=== PATIENT | male | born 1965 | race Caucasian/White ===

== ENCOUNTER 2020-04-03 14:22 | Emergency (ER) | payer BC, SELFPAY ==
[2020-04-03] VITALS (10 sets, daily range): BP systolic 138–155; BP diastolic 91–108; PULSE 74–90; RESP 11–22; TEMP 36.8–37; O2SAT 94–98
--- NOTE | ~2020-04-03 | XR_ITS ---
EXAMINATION: XR chest 2V EXAM DATE: 04/03/2020 15:54 INDICATION: dyspnea, CP, Tightness, Sob, Smoker, Covid + 3 Weeks Ago. TECHNIQUE: Frontal and lateral projections of the chest obtained and reviewed. Comparison is made to prior examination from 04/11/2017. FINDINGS: The lungs are clear. There are no pleural effusions. The cardiomediastinal silhouette is within normal limits. There is no pneumothorax suspected. The bones and soft tissues are unremarkab le. IMPRESSION: No acute cardiopulmonary findings. Reviewed, dictated and finalized at location A. NOSTIC IMAGING MANAGER
--- NOTE | 2020-04-03 16:47 | ECG_ITS ---
Measurements Intervals [place] Rate: 74 P: 38 FL: 162 QRS: 11 QRSD: 96 T: 80 QT: 366 QTc: 408 Interpretive Statements SINUS RHYTHM DELAYED PRECORDIAL R/S TRANSITION INFERIOR INFARCT, AGE INDETERMINATE BORDERLINE ST-T WAVE ABNORMALITY- LAT/HIGH LAT LEADS ABNORMAL ECG Electronically Signed On 04-03-2020 18:51:48 [employer] by Imitaz Jacques D.O.
--- NOTE | 2020-04-03 17:16 | ED.SOB ---
HPI - SOB/Dyspnea General Chief Complaint: Shortness of Breath/Dyspnea Stated Complaint: sob, hx covid 2 weeks ago Time Seen by Provider: 04/03/20 16:45 Source: patient Mode of arrival: ambulatory Limitations: no limitations History of Present Illness HPI Narrative: This is a 54-year-old male that presents to the emergency department for shortness of breath. Reports he was diagnosed with Covid 2 weeks ago. Reports he was just released to go back to work yesterday. Reports he had a long walk into the office, and on his walk he felt very short of breath. Reports it took him a while to recover from this. Reports even just walking back to his ED room made him short of breath as well. Denies fever, cough, chest pain, or lower extremity edema. Related Data Home Medications Medication Instructions Recorded Confirmed aspirin 81 mg tablet,delayed 81 mg PO DAILY 06/06/19 release atorvastatin 40 mg tablet 40 mg PO DAILY 06/06/19 lisinopril 5 mg tablet 5 mg PO DAILY 06/06/19 metoprolol succinate 25 mg 25 mg PO BID 06/06/19 tablet,extended release 24 hr nitroglycerin 0.3 mg sublingual 0.3 mg SUBLINGUAL Q5M PRN 06/06/19 tablet Allergies Allergy/AdvReac Type Severity Reaction Status Date / Time inositol Allergy Unknown Unknown Verified 04/03/20 17:18 niacin Allergy Unknown Unknown Verified 04/03/20 17:18 niacinamide Allergy Unknown Unknown Verified 04/03/20 17:18 Review of Systems Review of Systems: Narrative: CONSTITUTIONAL: Denies fever ENT: Denies rhinorrhea, congestion, sore throat CARDIOVASCULAR: Denies chest pain, or edema. RESPIRATORY: Reports dyspnea. Denies cough All systems reviewed & are unremarkable except as noted in HPI and below [facility] Past Medical History Medical History (Updated 04/03/20 @ 19:33 by Abril Johnston PA-C) Aortic valve sclerosis Essential (primary) hypertension History of coronary artery disease Mixed hyperlipidemia Ventricular hypertrophy Family History Family History Father Hypertension Family history of dementia Diabetes mellitus Family history of Alzheimer's disease Mother Family history of lung cancer Social History Social History (Updated 04/03/20 @ 17:18 by Abril Johnston PA-C) Smoking status: Current some day smoker Second hand tobacco smoke exposure: No Smoking end date: 05/18/16 Alcohol intake: current Exam Narrative: Exam Narrative: GENERAL: Well-appearing, well-nourished, and in no acute distress. HEAD: Normocephalic, atraumatic. EYES: EOMI. ENT: Nares clear, no rhinorrhea or epistaxis. Mucous membranes moist. Oropharynx without tonsillar hypertrophy exudate or other lesions. Bilateral TMs pearly espino non-bulging NECK: Supple. No adenopathy or masses. No carotid bruits or JVD CHEST: Clear to auscultation. No respiratory distress. No wheezes rales or rhonchi HEART: Regular rate and rhythm. No murmur heard. Normal peripheral pulses. EXTREMITIES: Normal range of motion. No edema. SKIN: Warm, dry, no rash. NEURO: No focal deficits. Alert and oriented x3. PSYCH: Normal mood and affect Course Vital Signs Vital signs: Vital Signs Temperature 98.6 F 04/03/20 14:29 Pulse Rate 90 04/03/20 14:29 Respiratory Rate 18 04/03/20 14:29 Blood Pressure 148/108 H 04/03/20 14:29 Pulse Oximetry 98 04/03/20 14:29 Temperature 98.6 F 04/03/20 14:29 Pulse Rate 75 04/03/20 18:46 Respiratory Rate 16 04/03/20 18:46 Blood Pressure 149/101 H 04/03/20 18:46 Pulse Oximetry 94 04/03/20 18:46 MDM - SOB/Dyspnea MDM Narrative Medical decision making narrative: Patient presents to the ER for shortness of breath. Recently had been released back to work. He is afebrile and nontoxic appearing. Oxygen saturation has remained normal on room air. CBC with mild leukocytosis to 11.8. Metabolic panel without concerning findings. D-dimer is not elevated. BNP mildly elevated t
[2020-04-03 17:31] LABS: Basophils Absolute Auto 0.1 K/mm3 (0.0-0.1); Basophils Percent Auto 0.5 % (0.2-1.2); Eosinophils Absolute Auto 0.2 K/mm3 (0-0.3); Hematocrit 45.2 % (42.0-52.0); Hemoglobin 16.1 g/dL (14.0-18.0); Immature Granulocyte Absolute 0.03 K/mm3 (0.00-0.031); Immature Granulocyte Percent A 0.3 % (0-0.5); Lymphocytes Absolute Auto 2.85 K/mm3 (0.9-3.2); Lymphocytes Percent Auto 24.2 % (18.3-44.2); Mean Corpuscular HGB Conc 35.6 g/dl (32-36); Mean Corpuscular Hemoglobin 30.6 pg (26-34); Mean Corpuscular Volume 85.8 fl (80-100); Monocytes Absolute Auto 0.8 K/mm3 (0.1-0.6); Monocytes Percent Auto 6.8 % (2.6-8.5); Neutrophils Absolute Auto 7.8 K/mm3 (1.3-6.7); Neutrophils Percent Auto 66.2 % (45.5-73.1); Platelet Count Result 264 k/mm3 (150-375); Red Blood Count 5.27 M/mm3 (4.6-6.20); Red Cell Distribution Width 12.4 % (11.5-14.5); White Blood Count 11.8 K/mm3 (4.5-10.0)
[2020-04-03 17:43] LABS: Anion Gap 10 mmol/L (8-16); Blood Urea Nitrogen 17 mg/dL (9-20); Calcium 9.6 mg/dL (8.4-10.2); Carbon Dioxide 27 mmol/L (22-30); Chloride 104 mmol/L (98-107); Estimated CRCL calculation 115 ml/min; Estimated Glomerular Filt Rate > 60; Glucose 95 mg/dL (75-110); Potassium 4.5 mmol/L (3.4-5.0); Sodium 141 mmol/L (137-145)
[2020-04-03 17:52] LABS: NT Pro B Type Natriuretic Pept 522 PG/ML (5-100)
[2020-04-03 18:17] LABS: Prothrombin Time 14.1 Seconds (11.1-14.7)
[2020-04-03 18:18] LABS: Partial Thromboplastin Time 27.1 SECONDS (22.3-36.8)
[2020-04-03 18:27] LABS: D Dimer 0.27 ug/mL (<0.48)
== END 2020-04-03 19:47 | disposition home or self-care (01) ==
PROVIDERS: Physician Assistant; Emergency Provider Emergency Medicine; PCP Family Medicine
DX: R06.00 Dyspnea, unspecified (principal); Z86.19 Personal history of other infectious and parasitic diseases; I35.8 Other nonrheumatic aortic valve disorders; I10 Essential (primary) hypertension; E78.2 Mixed hyperlipidemia; I25.10 Atherosclerotic heart disease of native coronary artery without angina pectoris; I51.7 Cardiomegaly; F17.200 Nicotine dependence, unspecified, uncomplicated; Z79.82 Long term (current) use of aspirin; R94.31 Abnormal electrocardiogram [ECG] [EKG]
CPT/HCPCS: 36415; 71046; 80048; 83880; 85025; 85380; 85610; 85730; 93005; 99284

== ENCOUNTER → 2021-08-16 15:36 | Outpatient (CLI) | payer BC, SELFPAY ==
--- NOTE | ~2021-08-16 | CT_ITS ---
EXAMINATION:CT lung screening DATE: 08/16/2021 15:53 INDICATION: Encounter for screening for malignant neoplasms of respiratory organs. Current smoker wit h 30 pack year history. TECHNIQUE: Computed tomography (CT) of the chest was performed without intravenous contrast. Automate d exposure control and iterative reconstruction technique were employed. The dose-length product (DLP ) was 205.33 mGy-cm. COMPARISON: None. FINDINGS: There is mild scarring at the lung apices. There is mild atelectasis bilaterally. There is a 3 mm nodule in left lower lobe. There is a 5 mm nodule at minor fissure. There is a 4 mm nodule in right lower lobe. There is a 5 mm nodule in left lower lobe. No pleural effusion. The heart size is n ormal. There are coronary artery calcifications. There are calcifications of aortic valve. There is e ctasia of ascending aorta measuring 4.9 cm. There are bridging endplate osteophytes at multiple level s in the spine, consistent with diffuse idiopathic skeletal hyperostosis (DISH). IMPRESSION: 1. Lung-RADS category 2: Benign appearance or behavior. Continue annual screening with noncontrast lo w-dose chest CT in 12 months. 2. Ectasia of ascending aorta measuring 4.9 cm. Reviewed, dictated and finalized at location A. IMPRESSION: 1. Lung-RADS category 2: Benign appearance or behavior. Continue annual screeni ng with noncontrast low-dose chest CT in 12 months. 2. Ectasia of ascending aorta measuring 4.9 cm.
== END ==
PROVIDERS: PCP Family Medicine; Visit Provider Family Medicine
DX: Z12.2 Encounter for screening for malignant neoplasm of respiratory organs (principal); I77.811 Abdominal aortic ectasia
CPT/HCPCS: 71271

== ENCOUNTER 2021-09-06 01:12 | Day surgery (SDC) | payer BC, SELFPAY ==
[2021-08-28 09:44] VITALS: BMI 33.2
--- NOTE | 2021-09-06 07:25 | PM.HPGS ---
History of Present Illness History of Present Illness Consent: Risks, benefits, and alternatives have been discussed and questions answered. Patient agrees to proceed with procedure. Chief complaint: neoplasm screening Narrative: Frank Saenz is a 55 year old male Was referred for colon cancer screening. Review of Systems Review of Systems: All systems reviewed & are unremarkable except as noted in HPI and below PMF[facility] Past Medical History Medical History Aortic valve sclerosis Depression Essential (primary) hypertension Mixed hyperlipidemia Obesity Old NM (myocardial infarction) Ventricular hypertrophy Surgical History Surgical History History of coronary artery stent placement Family History Family History Father Hypertension Family history of dementia Diabetes mellitus Family history of Alzheimer's disease Mother Family history of lung cancer Social History Social History Smoking packs per day: 0.5 Smoking cigarettes per day: 10.0 Smoking status: Current every day smoker Tobacco type: cigarettes Second hand tobacco smoke exposure: No Alcohol intake: current Drinks per week: 3 Substance use: never Substance use type: does not use Living arrangements: alone Gender identity (if verbalized by the patient): Male Sexual Orientation (if Verbalized by the Patient): Straight or Heterosexual Spiritual care concerns: No Meds Home Medications and Allergies Home Medications Medication Instructions Recorded Confirmed Type aspirin 81 mg tablet,delayed 81 mg PO DAILY 06/06/19 09/06/21 History release lisinopril 5 mg tablet 5 mg PO DAILY 06/06/19 08/28/21 History metoprolol succinate 25 mg 25 mg PO BID 06/06/19 08/28/21 History tablet,extended release 24 hr nitroglycerin 0.3 mg sublingual 0.3 mg SUBLINGUAL Q5M PRN 06/06/19 08/28/21 History tablet cetirizine 10 mg tablet 10 mg PO DAILY PRN 08/12/21 09/06/21 History garlic 1,000 mg capsule 1,000 mg PO DAILY 08/12/21 08/28/21 History grfkgldbklcy-gaslbpzp-hplgvp tablet 1 tablet PO DAILY 08/12/21 08/28/21 History omega-3 fatty acids-fish oil 360 1 cap PO DAILY 08/12/21 08/28/21 History mg-1,200 mg capsule Cbd Gummy 25 mg PO QID PRN 08/28/21 08/28/21 History ibuprofen 600 mg PO QID PRN 08/28/21 08/28/21 History sertraline 50 mg PO DAILY 08/28/21 08/28/21 History atorvastatin 40 mg tablet 40 mg PO DAILY #90 tablet 09/02/21 09/06/21 Rx Allergies Allergy/AdvReac Type Severity Reaction Status Date / Time inositol Allergy Unknown Unknown Verified 09/06/21 10:14 niacin Allergy Unknown Unknown Verified 09/06/21 10:14 niacinamide Allergy Unknown Unknown Verified 09/06/21 10:14 Exam Resp: Auscultation: clear to auscultation bilaterally Cardio: Rate: regular rate Rhythm: regular rhythm GI: GI Palp: Yes Soft to palpation and No Tenderness to palpation present (GI) Assessment and Plan Assessment and plan (1) Colon cancer screening: Code(s): Z12.11 - Encounter for screening for malignant neoplasm of colon Status: Acute Assessment and Plan: Colonoscopy with possible biopsy or polypectomy or cautery or injection of substances.
[2021-09-06 10:15] VITALS: BP 123/89; PULSE 76; RESP 20; TEMP 36.5; O2SAT 97; BMI 32.8
[2021-09-06] MEDS: LACTATED RINGERS 1,000 ML 150 ML IV CONT (10:19)
--- NOTE | 2021-09-06 11:26 | WPDANESEPPF ---
Anes - Initial Pre Proc Eval Procedure: Operation Date: 09/06/21 11:30 Proposed Procedures p Screening Colonoscopy - Alvin Bacon MD Date/Time: 09/06/21 11:26 Surgeon: Alvin Bacon MD Pre Op Diagnosis: neoplasm screening Patient Data Age: 55 Gender: M Height: 1.78 m Weight: 103.6 kg Last Vital Signs Temp 97.7 F 09/06/21 10:15 Pulse 76 09/06/21 10:15 Resp 20 09/06/21 10:15 BP 123/89 09/06/21 10:15 Pulse Ox 97 09/06/21 10:15 Allergies Allergy/AdvReac Type Severity Reaction Status Date / Time inositol Allergy Unknown Unknown Verified 09/06/21 10:14 niacin Allergy Unknown Unknown Verified 09/06/21 10:14 niacinamide Allergy Unknown Unknown Verified 09/06/21 10:14 Home Medications Medication Instructions Recorded Confirmed Type aspirin 81 mg tablet,delayed 81 mg PO DAILY 06/06/19 09/06/21 History release lisinopril 5 mg tablet 5 mg PO DAILY 06/06/19 08/28/21 History metoprolol succinate 25 mg 25 mg PO BID 06/06/19 08/28/21 History tablet,extended release 24 hr nitroglycerin 0.3 mg sublingual 0.3 mg SUBLINGUAL Q5M PRN 06/06/19 08/28/21 History tablet cetirizine 10 mg tablet 10 mg PO DAILY PRN 08/12/21 09/06/21 History garlic 1,000 mg capsule 1,000 mg PO DAILY 08/12/21 08/28/21 History mqtkxgggjsmd-zlwhqnmu-inskue tablet 1 tablet PO DAILY 08/12/21 08/28/21 History omega-3 fatty acids-fish oil 360 1 cap PO DAILY 08/12/21 08/28/21 History mg-1,200 mg capsule Cbd Gummy 25 mg PO QID PRN 08/28/21 08/28/21 History ibuprofen 600 mg PO QID PRN 08/28/21 08/28/21 History sertraline 50 mg PO DAILY 08/28/21 08/28/21 History atorvastatin 40 mg tablet 40 mg PO DAILY #90 tablet 09/02/21 09/06/21 Rx Patient hx anesthesia problems: none Family hx anesthesia problems: none Results Review: All pre-operative results and documents have been reviewed as part of the pre-operative evaluation. [facility] Past Medical History Medical History Aortic valve sclerosis Depression Essential (primary) hypertension Mixed hyperlipidemia Obesity Old [place] (myocardial infarction) Ventricular hypertrophy Surgical History Surgical History History of coronary artery stent placement Family History Family History Father Hypertension Family history of dementia Diabetes mellitus Family history of Alzheimer's disease Mother Family history of lung cancer Social History Social History Smoking packs per day: 0.5 Smoking cigarettes per day: 10.0 Smoking status: Current every day smoker Tobacco type: cigarettes Second hand tobacco smoke exposure: No Alcohol intake: current Drinks per week: 3 Substance use: never Substance use type: does not use Living arrangements: alone Gender identity (if verbalized by the patient): Male Sexual Orientation (if Verbalized by the Patient): Straight or Heterosexual Spiritual care concerns: No Anes - Eval Final PreProcedure Day of Procedure 09/06/21 11:26 Patient weight: obese Heart: regular rate and rhythm Lungs: clear to auscultation Airway: Mallampati scale class II Neurological: alert and oriented Last oral intake: >/= 8 hours ASA classification: III Emergent: no Anesthetic plan: proceed Anesthesia type and monitoring: general GIVS and standard monitoring Results Review: All pre-operative results and documents have been reviewed as part of the pre-operative evaluation. Informed Consent: The patient's anesthetic plan and its attendant risks and benefits were discussed with the patient/family/POA. Questions were solicited and answers provided to the satisfaction of the patient/family/POA.
[2021-09-06 11:43] VITALS: BP 99/60; PULSE 69; RESP 22; O2SAT 96
[2021-09-06 11:53] VITALS: BP 103/62; PULSE 68; RESP 22; O2SAT 97
[2021-09-06 12:03] VITALS: BP 103/60; PULSE 65; RESP 19; O2SAT 97
== END 2021-09-06 12:04 | disposition home or self-care (01) ==
PROVIDERS: PCP Family Medicine; Visit Provider Internal Medicine Gastroenterology
PROC: 0DJD8ZZ Inspection of Lower Intestinal Tract, Via Natural or Artificial Opening Endoscopic (ICD-10-PCS; CPT 45378; principal; 2021-09-06 11:30)
DX: Z12.11 Encounter for screening for malignant neoplasm of colon (principal); D12.0 Benign neoplasm of cecum; D12.5 Benign neoplasm of sigmoid colon; K63.5 Polyp of colon; I11.9 Hypertensive heart disease without heart failure; Z79.82 Long term (current) use of aspirin; I25.2 Old myocardial infarction; E78.2 Mixed hyperlipidemia; I35.8 Other nonrheumatic aortic valve disorders; Z95.5 Presence of coronary angioplasty implant and graft; F32.9 Major depressive disorder, single episode, unspecified; F17.210 Nicotine dependence, cigarettes, uncomplicated; E66.9 Obesity, unspecified; Z68.32 Body mass index [BMI] 32.0-32.9, adult
CPT/HCPCS: 45380; 45385; 45381; 88305; J2704; J7120

== ENCOUNTER 2022-02-25 13:30 | Outpatient (CLI) | payer BC, SELFPAY ==
--- NOTE | ~2022-02-25 | US_ITS ---
EXAMINATION: US carotid duplex BI DATE: 02/25/2022 14:15 INDICATION: Vertigo. Dizziness and giddiness. TECHNIQUE: Grayscale, color Doppler, and pulsed Doppler images of the cervical carotid arteries were obtained. The degree of vessel stenosis is placed in one of the following categories: normal, <50%, 5 0-69%, >=70% but less than near-occlusion, near-occlusion, or total occlusion. Note that percent sten osis relative to normal distal artery lumen diameter is indirectly measured from velocity measurement s as described by Bartolo, et al. Radiology 2003; 229:340-346. COMPARISON: None. FINDINGS: RIGHT: The right common carotid artery (CCA) peak systolic velocity (PSV) is 133 cm/s. The right internal ca rotid artery (ICA) PSV is 125 cm/s. The right ICA end-diastolic velocity (EDV) is 40 cm/s. The right ICA/CCA PSV ratio is 0.9. Grayscale and color Doppler images yield an estimate of <50% diameter reduc tion from plaque in the ICA. The external carotid artery (ECA) PSV is 145 cm/s. There is antegrade fl ow in the right vertebral artery. LEFT: The left CCA PSV is 186 cm/s. The left ICA PSV is 112 cm/s. The left ICA EDV is 29 cm/s. The left ICA /CCA PSV ratio is 0.9. Grayscale and color Doppler images yield an estimate of <50% diameter reductio n from plaque in the ICA. The ECA PSV is 155 cm/s. There is antegrade flow in the left vertebral elba ry. IMPRESSION: 1. <50% stenosis in the right internal carotid artery. 2. <50% stenosis in the left internal carotid artery. Reviewed, dictated and finalized at location B.
== END 2022-02-25 13:31 | disposition home or self-care (01) ==
PROVIDERS: PCP Family Medicine; Visit Provider Family Medicine
DX: I65.23 Occlusion and stenosis of bilateral carotid arteries (principal); R42 Dizziness and giddiness
CPT/HCPCS: 93880

== ENCOUNTER → 2022-10-29 07:27 | Outpatient (CLI) | payer BC, SELFPAY ==
--- NOTE | ~2022-10-29 | CT_ITS ---
CT Scan of the Chest without Contrast: Clinical Indication: Lung cancer screening, personal history of nicotine dependence Technique: Contiguous sections were acquired throughout the chest without intravenous contrast. Dose reduction technique was used on this scan by utilizing automated exposure control and iterative recon struction technique. The dose-length product (DLP) was 171.23 mGy-cm. COMPARISON: 08/16/2021 Findings: There is no evidence of any significant mediastinal, hilar or axillary lymphadenopathy. Coronary elba ry calcifications are present. Ascending aortic aneurysm measures 5.2 cm in diameter. There is no evidence of pleural or pericardial effusion. Stable nodule along the right minor fissure (axial image 73). Calcified right lower lobe granuloma no jacques. Stable subcentimeter nodules in the left lower lobe. Images through the upper abdomen reveal no abnormalities. There is DISH of the thoracic spine. Impression: Lung RADS 2: Benign appearance. 12 month follow-up screening CT advised. Ascending thoracic aortic aneurysm measures 5.2 cm in maximum diameter. Reviewed, dictated and finalized at location . Impression: Lung RADS 2: Benign appearance. 12 month follow-up screening CT advised. Ascending thoracic aortic aneurysm measures 5.2 cm in maximum diameter.
== END ==
PROVIDERS: PCP Family Medicine; Visit Provider Family Medicine
DX: Z12.2 Encounter for screening for malignant neoplasm of respiratory organs (principal); Z87.891 Personal history of nicotine dependence
CPT/HCPCS: 71271

== ENCOUNTER 2024-09-26 00:20 | Day surgery (SDC) | payer OTHER, SELFPAY ==
[2024-09-21 08:17] VITALS: BMI 30.7
--- OUTSIDE RECORDS SUMMARY | 2024-09-26 00:23 | XMS_ITS | Referral Summary ---
Author Organization [facility] Address [address] [address] Care Team Providers Care Compound Worker Name Role Phone Leon Arita MD Primary Care Provider Encounters Date Type Department Care Team Description 07/21/2024 3:45 PM WELL FLOW OPERATOR Office Visit [facility] Cardiology at [address] [place] [address] Roberto Benavides MD Chronic coronary artery disease (Primary Dx); Presence of stent in coronary artery from Last 3 Months Allergies Active Allergy Reactions Criticality Noted Date Comments Niacin Flushing (skin) Low 04/27/2017 Medications nitroglycerin (NITROSTAT) 0.[address] 1 tablet (0.4 mg total) under the tongue every 5 (five) minutes as needed for chest pain Active aspirin 81 mg tablet Take 1 tablet (81 mg total) by mouth daily Active cetirizine (ZyrTEC) 10 mg tablet Take 1 tablet (10 mg total) by mouth daily Active multivitamin tablet tabletIndicati ons:Vitamin Deficiency Prevention Take 1 tablet by mouth daily Active garlic 1,000 mg capsule Take 1,000 mg by mouth daily. Active CALCIUM CARBONATE (CALCIUM 600 ORAL) Take 600 mg by mouth daily. Active cholecalcifero l (VITAMIN D-3) 1,000 unit capsule Take 1 capsule (1,000 Units total) by mouth daily Active sertraline (ZOLOFT) 100 mg tablet 0.5 tablets (50 mg total) 05/04/201 8 Active omega 1-ojh-rnj-fish oil 300-1,000 mg capsule daily. 7 Active atorvastatin (LIPITOR) 40 mg tablet TAKE 1 TABLET BY MOUTH EVERY DAY 90 tablet 2 1 Active Jardiance 10 mg tablet Take 1 tablet (10 mg total) by mouth every morning 4 Active apple cider vinegar 500 mg tablet Take by mouth Active lisinopriL (PRINIVIL,ZEST RIL) 5 mg tablet TAKE 1 TABLET BY MOUTH EVERY DAY 90 tablet 2 4 Active metoprolol tartrate (LOPRESSOR) 25 mg immediate release tablet TAKE 1 TABLET BY MOUTH TWICE A DAY 180 tablet 3 5 Active metoprolol tartrate (LOPRESSOR) 25 mg immediate release tablet TAKE 1 TABLET BY MOUTH TWICE A DAY 180 tablet 1 4 09/03/19 25 Discontinued Active Problems Problem Noted Date Diagnosed Date Nonalcoholic steatohepatitis 12/26/2017 Fatty infiltration of liver 04/27/2017 Coronary artery disease invo lving [place] coronary artery of [place] heart without angina pectoris 04/27/2017 Presence of stent in coronary artery 04/27/2017 Dyslipidemia 04/27/2017 History of non-ST elevation myocardial infarctio n (NSTEMI) 04/27/2017 Tobacco abuse 04/27/2017 Aortic root dilatation 04/27/2017 Psoriasis 12/22/2016 Chronic coronary artery disease 12/22/2016 Obesity 12/22/2016 Abnormal liver function tests 12/22/2016 Resolved Problems Problem Noted Date Diagnosed Date Resolved Date Chronic hepatitis B virus infection 12/22/2016 12/26/2017 Acute coronary syndrome 12/16 Social History Tobacco Use Types Packs/Day Years Used Date Smoking Tobacco: Former Smokeless Tobacco: Never Tobacco Cessation:Counseling Given: Not Answered Alcohol Use Standard Drinks/Week Comments Yes 0 (1 standard drink = 0.6 oz pur e alcohol) Sex and Gender Information Value Date Recorded Sex Assigned at Not on file Legal Sex Male 2:14 AM WELL FLOW OPERATOR Gender Identity Male 04/26/2022 12:53 PM WELL FLOW OPERATOR Sexual Orientation Straight 04/26/2022 12 :53 PM WELL FLOW OPERATOR Last Filed Vital Signs Vital Sign Reading Time Taken Comments Blood Pressure 120/72 07/21/2024 3:43 PM WELL FLOW OPERATOR Pulse 84 07/21/2024 3:43 PM WELL FLOW OPERATOR Temperature 36.3 C (97.3 F) 10/11/2019 11:01 AM CDT Respiratory Rate 12 11/17/2019 8:59 AM CDT Oxygen Saturation 95% 07/21/2024 3:43 PM WELL FLOW OPERATOR Inhaled Oxygen Concentration - - Weight 98.4 kg (217 lb) 07/21/2024 3:43 PM WELL FLOW OPERATOR Height 180.3 cm (5' 11 ) 07/21/2024 3:43 PM WELL FLOW OPERATOR Body Mass Index 30.27 07/21/2024 3:43 PM WELL FLOW OPERATOR Plan of Treatment Not on file [place] [address] Care Teams Compound Worker Relationship Specialty Start Date End Date Leon Arita MD [address] [facility] [address] [place] [address] PCP - General Family Medicine 12/19/21
--- OUTSIDE RECORDS SUMMARY | 2024-09-26 00:23 | XMS_ITS | CONTINUITY OF CARE DOCUMENT ---
Author Name nayely adler Address Unknown Organization [facility] Address [address] [place] [address] Phone [phone] Care Team Providers Care Feather Cutting Machine Feeder Name Role Phone nayely adler Unavailable Unavailable INSURANCE PROVIDERS Payer name Policy type / Coverage type [place] red democrat ID [facility] [employer] insurance company [id number]
--- OUTSIDE RECORDS SUMMARY | 2024-09-26 00:23 | XMS_ITS | Clinical Summary ---
Author Organization [facility] Address [address] [address] Care Team Providers Care Service Establishment Attendant Name Role Phone Leon Arita MD Primary Care Provider Allergies Active Allergy Reactions Criticality Noted Date [...] mg tablet 0.5 tablets (50 mg total) 8 Active omega 3-zmp-dao-fish oil 300-1,000 mg capsule daily. 7 Active [...] liver 04/27/2017 Coronary artery disease invo lving [place] coronary artery of [place] heart without angina pectoris 04/27/2017 Presence of [...] infection 12/22/2016 12/26/2017 Acute coronary syndrome 12/16 Encounters Date Type Department Care Team Description 07/21/2024 3:45 PM PRINTING PRESS MACHINE OPERATOR Office Visit [facility] Cardiology at [address] [place] [address] Roberto Benavides MD Chronic coronary artery disease (Primary Dx); Presence of stent in coronary artery from Last 3 Months Surgical History Surgery Date Site/Laterality Comments CORONARY ANGIOPLASTY WITH STENT PLACEMENT Medical History Medical History Date Comments Chronic coronary artery disease Coronary Artery Disease Hyperlipidemia Acute coronary syndrome (HCC) Social History Tobacco Use Types Packs/Day Years Used Date Smoking Tobacco: Former Smokeless Tobacco: Never Tobacco Cessation:Counseling Given: Not Answered Alcohol Use Standard Drinks/Week Comments Yes 0 (1 standard drink = 0.6 oz pur e alcohol) Sex and Gender Information Value Date Recorded Sex Assigned at Not on file Legal Sex Male 2:14 AM PRINTING PRESS MACHINE OPERATOR Gender Identity Male 04/26/2022 12:53 PM PRINTING PRESS MACHINE OPERATOR Sexual Orientation Straight 04/26/2022 12 :53 PM PRINTING PRESS MACHINE OPERATOR Obstetrics History Last Filed Vital Signs Vital Sign Reading Time Taken Comments Blood Pressure 120/72 07/21/2024 3:43 PM PRINTING PRESS MACHINE OPERATOR Pulse 84 07/21/2024 3:43 PM PRINTING PRESS MACHINE OPERATOR Temperature 36.3 C (97.3 F) 10/11/2019 11:01 AM CDT Respiratory Rate 12 11/17/2019 8:59 AM CDT Oxygen Saturation 95% 07/21/2024 3:43 PM PRINTING PRESS MACHINE OPERATOR Inhaled Oxygen Concentration - - Weight 98.4 kg (217 lb) 07/21/2024 3:43 PM PRINTING PRESS MACHINE OPERATOR Height 180.3 cm (5' 11 ) 07/21/2024 3:43 PM PRINTING PRESS MACHINE OPERATOR Body Mass Index 30.27 07/21/2024 3:43 PM PRINTING PRESS MACHINE OPERATOR Plan of Treatment Health Maintenance Due Date Last Done Comments Colon Cancer Screening-Colonoscopy 1965 Depression Screening 1965 Hepatitis C Screening 1965 Prostate Cancer Screening-PSA 1965 Regular Well Visit/Exam 18-64 11/30/1983 Pneumococcal vaccine <65 (1 of 2 - PCV) 1984 Zoster Vaccine (1 of 2) 11/30/2015 Influenza Vaccine (Season Ended) 2025 DTaP/Tdap/Td Vaccine (2 - Td or Tdap) 02/21/202911/2018 Hepatitis B Screening Completed 12/26/2017, 017 Insurance [facility] CHOICE PLUS [facility] CHOICE PLUS Care Teams Service Establishment Attendant Relationship Specialty Start Date End Date Leon Arita MD [address] [facility] [address] [place], [place] [id number] PCP - General Family Medicine 12/19/21
[2024-09-26 10:11] VITALS: BP 122/87; PULSE 67; RESP 18; TEMP 36.1; O2SAT 98
--- NOTE | 2024-09-26 10:26 | WPDANESEPPF ---
Anes - Initial Pre Proc Eval Procedure: Operation Date: 09/26/24 11:30 Proposed Procedures p Colonoscopy - Mckay Viera MD Date/Time: 09/26/24 10:26 Surgeon: Mckay Viera MD Pre Op Diagnosis: Personal history of colon polyps, unspecified Patient Data Age: 58 Gender: M Height: 1.8 m Weight: 95.6 kg Last Vital Signs Temp 36.1 C L 09/26/24 10:11 Pulse 67 09/26/24 10:11 Resp 18 09/26/24 10:11 BP 122/87 09/26/24 10:11 Pulse Ox 98 09/26/24 10:11 O2 Del Method Room Air 09/26/24 10:11 Allergies Allergy/AdvReac Type Severity Reaction Status Date / Time inositol Allergy Unknown Unknown Verified 09/26/24 10:09 niacin Allergy Unknown Unknown Verified 09/26/24 10:09 niacinamide Allergy Unknown Unknown Verified 09/26/24 10:09 Home Medications ?Medication ?Instructions ?Recorded ?Confirmed ?Type aspirin 81 mg tablet,delayed 81 mg PO DAILY 06/06/19 09/26/24 History release (Adult Aspirin Regimen) lisinopril 5 mg tablet 5 mg PO DAILY 06/06/19 09/26/24 History metoprolol succinate 25 mg 25 mg PO BID 06/06/19 09/26/24 History tablet,extended release 24 hr nitroglycerin 0.3 mg sublingual 0.3 mg sublingual Q5M PRN Chest 06/06/19 09/21/24 History tablet (Nitrostat) Pain cetirizine 10 mg tablet (Zyrtec) 10 mg PO DAILY PRN Allergy Symptoms 08/12/21 09/26/24 History garlic 1,000 mg capsule 1,000 mg PO DAILY 08/12/21 09/26/24 History nbwcznixmgsh-nuebebgc-eohzjh tablet 1 tablet PO DAILY 08/12/21 09/26/24 History omega-3 fatty acids-fish oil 360 1 cap PO DAILY 08/12/21 09/26/24 History mg-1,200 mg capsule (Fish Oil) ibuprofen 600 mg tablet 600 mg PO QID PRN Pain 08/28/21 09/21/24 History blood-glucose meter #1 ea 09/06/21 09/21/24 Rx lancets #200 ea 09/06/21 09/21/24 Rx blood sugar diagnostic (Blood #100 ea 11/10/22 09/21/24 Rx Glucose Test strips) tadalafil 10 mg tablet 10 mg PO DAILY PRN sexual activity 09/10/23 09/21/24 Rx #10 tabs atorvastatin 40 mg tablet 40 mg PO DAILY #90 tabs 06/02/24 09/26/24 Rx empagliflozin 10 mg tablet 10 mg PO QAM #90 tabs 09/02/24 09/26/24 Rx (Jardiance) sertraline 50 mg tablet (Zoloft) 50 mg PO DAILY #90 tabs 09/05/24 09/26/24 Rx Patient hx anesthesia problems: none Family hx anesthesia problems: none Results Review: All pre-operative results and documents have been reviewed as part of the pre-operative evaluation. [facility] Past Medical History Medical History CAD (coronary artery disease) Obesity [place] (myocardial infarction) Depression Aortic valve sclerosis Ventricular hypertrophy Essential (primary) hypertension Mixed hyperlipidemia Surgical History Surgical History History of coronary artery stent placement Family History Family History Father Hypertension Family history of dementia Diabetes mellitus Family history of Alzheimer's disease Mother Family history of lung cancer Social History Social History (Updated 09/26/24 @ 10:26 by Ted Rios MD) Smoking packs per day: 0.5 Smoking cigarettes per day: 10.0 Smoking status: Former smoker Tobacco type: cigarettes Second hand tobacco smoke exposure: No Smoking end date: 04/28/22 Alcohol intake: current Drinks per week: 3 Substance use: never Substance use type: does not use Living arrangements: alone Occupation/Education: occupation Gender identity (if verbalized by the patient): Male Sexual Orientation (if Verbalized by the Patient): Straight or Heterosexual Spiritual care concerns: No Anes - Eval Final PreProcedure Day of Procedure 09/26/24 10:26 Patient weight: overweight Heart: regular rate and rhythm Lungs: clear to auscultation Airway: Mallampati scale class II Neurological: alert and oriented Last oral intake: >/= 8 hours ASA classification: III Emergent: no Anesthetic plan: proceed Anesthesia type and monitoring: general GIVS and standard monitoring Results Review: All pre-operative results and documents have been reviewed as part of the pre-operative evaluation. Informed Consent: The patient's anesthetic plan and its attendant risks and benefits were discussed with the patient/family/POA. Questions were solicited and answers provided to the satisfaction of the patient/family/POA.
[2024-09-26] MEDS: LACTATED RINGERS 1,000 ML 150 ML IV CONT (10:27)
[2024-09-26 10:34] LABS: Glucose Point of Care 113 mg/dl (65-105)
--- NOTE | 2024-09-26 11:18 | PM.IMHP ---
H&P: HPI History of Present Illness Date/Time: 09/26/24 11:18 Chief Complaint: History of colon polyps Narrative: The patient has a history of colonic polyps, the last colonoscopy was in 2021, finding several serrated polyps and tubular adenomas. One of them was larger than 1 cm and was resected with a hot snare. Jennifer ink was marked in the site located in the descending colon. Review of Systems Review of Systems: All systems reviewed & are unremarkable except as noted in HPI and below PMFSH Past Medical History Medical History CAD (coronary artery disease) Obesity [place] (myocardial infarction) Depression Aortic valve sclerosis Ventricular hypertrophy Essential (primary) hypertension Mixed hyperlipidemia Surgical History Surgical History History of coronary artery stent placement Family History Family History Father Hypertension Family history of dementia Diabetes mellitus Family history of Alzheimer's disease Mother Family history of lung cancer Social History Social History (Updated 09/26/24 @ 10:26 by Ted Rios MD) Smoking packs per day: 0.5 Smoking cigarettes per day: 10.0 Smoking status: Former smoker Tobacco type: cigarettes Second hand tobacco smoke exposure: No Smoking end date: 04/28/22 Alcohol intake: current Drinks per week: 3 Substance use: never Substance use type: does not use Living arrangements: alone Occupation/Education: occupation Gender identity (if verbalized by the patient): Male Sexual Orientation (if Verbalized by the Patient): Straight or Heterosexual Spiritual care concerns: No Meds Home Medications and Allergies Home Medications ?Medication ?Instructions ?Recorded ?Confirmed ?Type aspirin 81 mg tablet,delayed 81 mg PO DAILY 06/06/19 09/26/24 History release (Adult Aspirin Regimen) lisinopril 5 mg tablet 5 mg PO DAILY 06/06/19 09/26/24 History metoprolol succinate 25 mg 25 mg PO BID 06/06/19 09/26/24 History tablet,extended release 24 hr nitroglycerin 0.3 mg sublingual 0.3 mg sublingual Q5M PRN Chest 06/06/19 09/21/24 History tablet (Nitrostat) Pain cetirizine 10 mg tablet (Zyrtec) 10 mg PO DAILY PRN Allergy Symptoms 08/12/21 09/26/24 History garlic 1,000 mg capsule 1,000 mg PO DAILY 08/12/21 09/26/24 History snbbmmyhbreq-psuwsujn-bnapzn tablet 1 tablet PO DAILY 08/12/21 09/26/24 History omega-3 fatty acids-fish oil 360 1 cap PO DAILY 08/12/21 09/26/24 History mg-1,200 mg capsule (Fish Oil) ibuprofen 600 mg tablet 600 mg PO QID PRN Pain 08/28/21 09/21/24 History blood-glucose meter #1 ea 09/06/21 09/21/24 Rx lancets #200 ea 09/06/21 09/21/24 Rx blood sugar diagnostic (Blood #100 ea 11/10/22 09/21/24 Rx Glucose Test strips) tadalafil 10 mg tablet 10 mg PO DAILY PRN sexual activity 09/10/23 09/21/24 Rx #10 tabs atorvastatin 40 mg tablet 40 mg PO DAILY #90 tabs 06/02/24 09/26/24 Rx empagliflozin 10 mg tablet 10 mg PO QAM #90 tabs 09/02/24 09/26/24 Rx (Jardiance) sertraline 50 mg tablet (Zoloft) 50 mg PO DAILY #90 tabs 09/05/24 09/26/24 Rx Allergies Allergy/AdvReac Type Severity Reaction Status Date / Time inositol Allergy Unknown Unknown Verified 09/26/24 10:09 niacin Allergy Unknown Unknown Verified 09/26/24 10:09 niacinamide Allergy Unknown Unknown Verified 09/26/24 10:09 Vital Signs Vital Signs - 24 hr 09/26/24 10:11 Temperature 97 F L Pulse Rate 67 Respiratory Rate 18 Blood Pressure 122/87 Pulse Oximetry 98 Oxygen Delivery Room Air Exam Const: General: cooperative and healthy appearing Resp: Effort & Inspection: normal respiratory effort and able to speak in complete sentences Auscultation: clear to auscultation bilaterally Cardio: Rate: regular rate Rhythm: regular rhythm GI: Inspection: normal to inspection GI Palp: No No hepatosplenomegaly present Auscultation: normal bowel sounds Rectal Exam: deferred Skin: General skin exam: normal color Psych: Appearance: grossly normal Mental Status: mental status grossly normal Assessment and Plan Assessment and plan (1) History of colonic polyps: Code(s): Z86.0100 - Personal history of colon polyps, unspecified Status: Acute Assessment and Plan: The patient is deemed a good candidate for the procedure. Consent signed. Will proceed.
[2024-09-26 11:45] VITALS: BP 116/82; PULSE 60; RESP 19; O2SAT 96
[2024-09-26 11:55] VITALS: BP 115/79; PULSE 59; RESP 19; O2SAT 97
[2024-09-26 12:05] VITALS: BP 111/81; PULSE 60; RESP 22; O2SAT 99
== END 2024-09-26 12:20 | disposition home or self-care (01) ==
PROVIDERS: PCP Family Medicine; Referring Provider Internal Medicine Gastroenterology; Visit Provider Internal Medicine Gastroenterology
PROC: 0DJD8ZZ Inspection of Lower Intestinal Tract, Via Natural or Artificial Opening Endoscopic (ICD-10-PCS; CPT 45378; principal; 2024-09-26 11:30)
DX: Z12.11 Encounter for screening for malignant neoplasm of colon (principal); D12.5 Benign neoplasm of sigmoid colon; K63.5 Polyp of colon; K64.8 Other hemorrhoids; I10 Essential (primary) hypertension; E78.2 Mixed hyperlipidemia; I25.10 Atherosclerotic heart disease of native coronary artery without angina pectoris; I25.2 Old myocardial infarction; F32.A Depression, unspecified; I35.8 Other nonrheumatic aortic valve disorders; Z79.82 Long term (current) use of aspirin; Z79.1 Long term (current) use of non-steroidal anti-inflammatories (NSAID); Z79.84 Long term (current) use of oral hypoglycemic drugs; Z98.890 Other specified postprocedural states; Z95.5 Presence of coronary angioplasty implant and graft; Z87.891 Personal history of nicotine dependence; Z80.1 Family history of malignant neoplasm of trachea, bronchus and lung
CPT/HCPCS: 45385; 82948; 88305; J2003; J2704; J7120